=== PATIENT | male | born 1975 | race Caucasian/White ===

== ENCOUNTER 2023-11-21 19:27 | Emergency (ER) | payer MEDICARE, OTHER ==
[~2023-11-21] VITALS: Ht 188 cm; Wt 108.9 kg
[2023-11-21] MEDS ORDERED: diphenhydrAMINE HCL 50 MG CAPSULE ONE (19:44)
[2023-11-21] MEDS ORDERED: predniSONE 20 MG TABLET ONE (19:44)
[2023-11-21] MEDS: diphenhydrAMINE HCL 25 MG CAPSULE PO ONE (19:47)
[2023-11-21] MEDS: predniSONE 50 MG TABLET PO ONE (19:47)
[2023-11-21] MEDS ORDERED: PRED20TA PO (21:11)
[2023-11-21 21:14] VITALS: BP 124/91; TEMP 98.3; O2SAT 97
== END 2023-11-21 21:15 | disposition home or self-care (01) ==
LOC: ER 19:29
DX: T63.441A Toxic effect of venom of bees, accidental (unintentional), initial encounter (principal); M79.89 Other specified soft tissue disorders; Z91.030 Bee allergy status; Y92.89 Other specified places as the place of occurrence of the external cause
CPT/HCPCS: 99283; Q0163; J7512